=== PATIENT | male | born 1965 ===

== ENCOUNTER 2018-04-20 02:15 | Day surgery (SDC) | payer OTHER ==
[~2018-04-20] VITALS: Ht 182.9 cm; Wt 73.9 kg
[2018-04-20 09:00] VITALS: BP 118/79
[2018-04-20] MEDS ORDERED: NORMOSOL R SOLN(*) 1000 ML BAG 1,000 ML IV PRN (09:25)
[2018-04-20] MEDS ORDERED: LIDOCAINE/SOD BICARB 8.4% SYR ID ONE (09:25)
[2018-04-20 11:09] VITALS: BP 86/58
[2018-04-20 11:16] VITALS: BP 95/64
[2018-04-20 11:34] VITALS: BP 116/83
[2018-04-20 11:38] VITALS: BP 110/87
[2018-04-20] MEDS ORDERED: PROPOFOL EMUL(*) 10MG/ML 20 ML 60 ML ONE (12:53)
== END 2018-04-20 11:40 | disposition home or self-care (01) ==
LOC: OR 02:15
PROVIDERS: ATTEND Family Medicine
DX: Z12.11 Encounter for screening for malignant neoplasm of colon (principal)
CPT/HCPCS: 00812; 45378; J2704